=== PATIENT | male | born 1950 | race Two or more races ===

== ENCOUNTER 2024-09-12 08:23 | Outpatient (CLI) | payer OTHER ==
[2024-09-12 09:08] LABS: Hematocrit 33.7 % (41.0-53.0); Hemoglobin 11.5 g/dL (13.5-17.5); Mean Corpuscular Hemoglobin 32.9 pg (28.0-32.0); Mean Corpuscular Volume 96.6 fL (80.0-100.0)
[2024-09-12 09:20] LABS: Chloride 101 mmol/L (98-107); Potassium 4.1 mmol/L (3.5-5.1); Sodium 138 mmol/L (136-145)
[2024-09-12 09:21] LABS: Anion Gap 9 (5-15); Calcium 9.9 mg/dL (8.7-10.4); Carbon Dioxide 28 mmol/L (20-31)
[2024-09-12 09:26] LABS: BUN/Creatinine Ratio 21.1 (10.0-20.0); Blood Urea Nitrogen 16 mg/dL (9-23); Triglycerides 105 mg/dL (< 150)
[2024-09-12 09:27] LABS: Albumin 4.3 g/dL (3.2-4.8); Total Protein 6.9 g/dL (5.7-8.2)
[2024-09-12 09:29] LABS: Alkaline Phosphatase 657 U/L (46-116); Bilirubin, Total 3.2 mg/dL (0.2-1.0); Cholesterol 221 mg/dL (< 200); Glucose 133 mg/dL (74-106); HDL Cholesterol 93 mg/dL (40-59)
[2024-09-12 09:50] LABS: Alanine Aminotransferase 353 U/L (7-40)
[2024-09-12 09:58] LABS: Total Cells Counted 100.0 (100)
[2024-09-12 09:59] LABS: RBC Morphology Normal
== END 2024-09-12 17:00 | disposition home or self-care (01) ==
LOC: LAB 08:23
PROVIDERS: ATTEND Nurse Practitioner Acute Care
DX: E11.9 Type 2 diabetes mellitus without complications (principal); E55.9 Vitamin D deficiency, unspecified; I25.89 Other forms of chronic ischemic heart disease
CPT/HCPCS: 36415; 80053; 80061; 82043; 82306; 83036; 84439; 84443; 85007; 85027

== ENCOUNTER 2024-09-14 13:24 | Inpatient (IN) | payer MEDICARE, OTHER ==
[~2024-09-14] VITALS: Ht 180.3 cm; Wt 93.8 kg
--- NOTE | 2024-09-14 14:03 | ECG ---
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
[2024-09-14 14:53] LABS: Albumin 4.3 g/dL (3.2-4.8); Anion Gap 9 (5-15); BUN/Creatinine Ratio 24.7 (10.0-20.0); Blood Urea Nitrogen 22 mg/dL (9-23); Calcium 9.4 mg/dL (8.7-10.4); Carbon Dioxide 26 mmol/L (20-31); Chloride 103 mmol/L (98-107); Hematocrit 33.7 % (41.0-53.0); Hemoglobin 11.3 g/dL (13.5-17.5); Lipase 36 U/L (12-53); Mean Corpuscular Hemoglobin 32.7 pg (28.0-32.0); Mean Corpuscular Volume 97.5 fL (80.0-100.0); Potassium 4.2 mmol/L (3.5-5.1); Sodium 138 mmol/L (136-145); Total Protein 6.8 g/dL (5.7-8.2)
[2024-09-14 14:55] LABS: Alanine Aminotransferase 310 U/L (7-40); Alkaline Phosphatase 653 U/L (46-116); Bilirubin, Total 3.7 mg/dL (0.2-1.0); Glucose 123 mg/dL (74-106)
[2024-09-14 15:07] LABS: Total Cells Counted 100.0 (100)
--- NOTE | 2024-09-14 15:16 | DVHINCON2 ---
Date Seen: Sep 14, 2024 Referring Physician MD Logan Reason for Consultation Chest pain History of Present Illness This is a pleasant 73 y.o. male who presented to the emergency room with a chief complain of chest pain. Complains of intermittent substernal chest pain, provoked and unproved, pressure like, and associated with upper back pain, abdominal discomfort, and abnormal stools for approximately three months. He also reports dark tarry stool for approximately 2-3 days back in April,. He has a significant history for cardiovascular disease including a massive myocardial infarction with several v-fib events with successful defibrillation and twelve-lead electrocardiograms revealing ST elevations inferiorly and anterolaterally undergoing emergent cardiac catheterization and coronary angiogram, found with severe multivessel disease with total occlusion of the proximal RCA, proximal posterolateral and mid-posterolateral branches. He underwent a successful but very complex PTCA of the aforementioned vessels including [address] Luciano at [facility] in [place] on 09/14/2023. Given intermittent episodes of chest pain he underwent a cardiolite stress test with primary front office director in [place] on 05/09/2024. Records brought in indicate an abnormal nuclear stress test showing a large severe area of inferior reversible ischemia. No further invasive procedures have been completed. He has moved back to [place] this past week and is establishing care at this time. States he has been compliant with ASA, Brilinta, statin, BB, and ACEI. A 12 lead electrocardiogram revealed a sinus rhythm with nonspecific ST-T wave changes. Blood work pending at this time. Other medical history includes hypertension, dyslipidemia, mst-ksgyzyy-lhxwhgjuk diabetes mellitus, and obesity. Past Medical History Past medical history reviewed. No other significant than mentioned above. Past Surgical History PTCA x3 BERTO, 09/14/2023 Bilateral knees Family History Family history reviewed. Social History Denies the use of illicit drugs, alcohol, or tobacco use. Allergies: Coded Allergies: NO KNOWN ALLERGIES (Unverified , 01/03/14) Home Meds Home medications reviewed. Review of Systems Constitutional: No symptom reported Ears, Nose, & Throat: No symptom reported Eyes: No symptom reported Neurological: No symptoms reported Pulmonary/Respiratory: No symptom reported Cardiovascular: Chest pain Gastrointestinal: Abdominal pain. Black tarry stools Genitourinary: No symptom reported Musculoskeletal: Back pain Skin: No symptom reported Psychiatric: No symptom reported Endocrine: No symptom reported Hemotologic/Lymphatic: No symptom reported Vital Signs Vital Signs Date Time Temp Pulse Resp B/P (MAP) Pulse Ox O2 Delivery O2 Flow Rate FiO2 09/14/24 14:00 Room Air* 0 21 09/14/24 13:38 69 Physical Exam General Appearance: Cooperative. Jaundice. Icterus present. In no acute distress Head Exam: Normal inspection Neck Exam: Normal inspection. Non-tender. Normal alignment Pulmonary/Respiratory: Chest non-tender. Clear bilateral breath sounds Cardiovascular/Chest: Regular rate and rhythm. S1, S2. SR with non-specific ST-T wave changes. No murmurs. No JVD. Peripheral Pulses: 2+ Radial (R). 2+ Radial (L). 2+ Pedal (R). 2+ Pedal (L) Abdominal Exam: Normal bowel sounds. Soft. Ankle Exam: Negative ankle edema Lower extremities: Negative lower extremity edema Neuro/Mental Status: A&O x4. Coherent Thoughts/Psych: Normal thought pattern. Appropriate mood and affect. Good judgement and insight Appearance: In no acute distress Skin Exam: Normal inspection. Jaundice color. Warm. Dry Labs/Diagnostic Data Labs Test 09/14/24 13:56 Range/Units Assessment Unstable angina rule out progressive coronary artery disease CAD with severe RI, V-fib, & defibrillation s/p PTCA of the RCA x 3DES (on ASA/Brilinta, 09/14/2023) Ischemic nuclear cardiolite stress test (05/09/2024) Hypertension Dyslipidemia Rca-rmtnpnb-zzuaetkbc diabetes mellitus Recent history of black tarry stools Hepatic lesions rule out malignancy Anemia Obesity Plan/Recommendation (Dr. Walker) The patient with unstable angina and a positive cardiolite stress test as outpatient may qualify for a cardiac catheterization and coronary angiogram after malignancy and lower GI bleed has been ruled out. In the meantime, continue single-antiplatelet therapy, lipid-lowering agent, BB, ACEI, and Jardiance. We will obtain a transthoracic echocardiogram to evaluate cardiac function. Monitor ECG changes closely and notify. Continue chest pain protocol. Further orders per clinical course. Thank you for allowing us to p articipate in this patient's care. Please call if you have any questions or concerns. Critical care time: 45 min. This medical document was created using an electronic medical record system with voice recognition software and computerized dictation system. Although this document has been carefully reviewed, there might still be some phonetic and typographical errors. Occasional wrong-word or ``sound-alike substitutions may have occurred due to the inherent limitations of voice recognition software. These areas are purely typographical due to imperfections of the software programs and do not reflect any compromise in the patient's medical care. Please read the chart carefully and recognize, using context, where these substitutions have occurred. Plan discussed with: Patient, Other NYHA Physical activity limitations: NA Date of Service: Sep 14, 2024 Billing Provider: MATI CALVIN Cardiology Common Codes: [id number] CARE 30-74 MIN MATI CALVIN Sep 14, 2024 15:16
[2024-09-14] MEDS: IOHEXOL 300 MG/ML 100ML BOTTLE IJ ONE (15:24)
[2024-09-14 15:31] LABS: Hepatitis B Surface Antigen Negative (Negative)
[2024-09-14 15:53] LABS: Hepatitis C Antibody Negative (Negative)
--- NOTE | 2024-09-14 16:56 | DVH ---
Exam: CT CT AB PEL WITH IV CON ONLY History: abdominal pain COMPARISON: None Technique: Multidetector spiral CT of the abdomen and pelvis was performed from lung bases to pubic symphysis. Intravenous contrast was administered during this examination. Portal venous imaging was obtained. Axial, coronal and sagittal multiplanar reformats were performed by the technologist on a separate workstation. Radiation Dose : Abdomen/Pelvis: CTDIvol 19.19 mGy, DLP 999.82 mGy*cm. CONTRAST: Type of contrast: Omni 300 Contrast injected: 85 mL Findings: Lung Bases: No acute or significant lung base finding. Normal heart size. No pleural or pericardial effusion. Liver: Numerous hypoenhancing masses throughout the liver, largest measuring up to 32 mm. Gallbladder and biliary Tree: Gallbladder is surgically absent. Spleen: Unremarkable Pancreas: Ill-defined hypoenhancing mass in the body of the pancreas measuring up to 50 mm. Adrenal Glands: Unremarkable Kidneys: No hydronephrosis. Bladder: Unremarkable Bowel: The stomach is grossly normal in appearance. Small bowel and colon are normal in caliber and d istribution. Normal appendix is visualized in the right lower quadrant without findings of appendicit is. Ascites: Absent Lymphadenopathy: No mesenteric, retroperitoneal or periportal lymphadenopathy. Abdominal wall and Mesentery: Small fat containing umbilical hernia. Vasculature: The visualized abdominal aorta is normal in size and caliber. There is calcified atheros clerotic plaque involving the aorta and its branches. Abdominal and pelvic vessels demonstrate normal enhancement. Pelvic Organs: Unremarkable Musculoskeletal: No aggressive focal bony lesions, acute fractures or dislocation. IMPRESSION: 1. Ill-defined hypoenhancing mass in the body of the pancreas measuring up to 50 mm. Numerous hypoen hancing masses throughout the liver. Findings are concerning for primary pancreatic malignancy with metastatic disease to the liver. Recommend further evaluation with MRI of the abdomen with contrast. CT-guided biopsy of the most accessible liver lesion could be performed for tissue diagnosis. Radiation optimization: All CT scans at this facility use at least one of these dose optimization danny hniques: Automated exposure control mA and/or kV adjustment per patient size (includes targeted exams where dose is matched to clinical indication) or iterative reconstruction. HS:Y
--- NOTE | 2024-09-14 16:57 | DVH ---
CHEST RADIOGRAPH Indication: chest pain Technique: Single frontal view of the chest was obtained Comparison: None FINDINGS: Lines and Tubes: None Lungs: No focal consolidation. Pleura: No effusion. No pneumothorax. Cardiomediastinal contours: Unremarkable Bones: No acute osseous abnormality. IMPRESSION: No acute cardiopulmonary disease.
[2024-09-14] MEDS ORDERED: HYDROcodone-ACET 5/325MG TAB PO PRN (17:15)
[2024-09-14] MEDS ORDERED: MORPHINE SULFATE INJ 2 MG/ml SYRG IV PRN (17:15)
[2024-09-14] MEDS ORDERED: ONDANSETRON HCL 4 MG/2 ML VIAL IV PRN (17:15)
[2024-09-14] MEDS ORDERED: NITROGLYCERIN 0.4 MG SL TAB SL PRN (17:15)
--- NOTE | 2024-09-14 17:22 | DVHHP2 ---
History of Present Illness Reason for Visit: Chest pain History of Present Illness 73-year-old male presented to the ED with chief complaint of chest pain patient complains of pain is intermittent and substernal, pressure-like with associated upper back pain and abdominal discomfort. Patient states he had more normal stools for about3 months, he reported dark tarry stools. Patient has a significant history for cardiovascular disease. CT of abdomen/pelvis did show pancreatic and liver masses concerning for metastases. Oncology is consulted. Patient will be admitted telemetry for further treatment and management. Past Medical History PTCA x3, [place], CAD, Past Surgical History Bilateral knee surgery Family History Denies Smoke: No ALCOHOL: none Drugs: None Lives: Alone Review of Systems Constitutional: No: Fever, Chills, Sweats, Weakness, Malaise, Other Eyes: No: Pain, Vision change, Conjunctivae inflammation, Eyelid inflammation, Other, Redness ENT: No: Ear pain, Ear discharge, Nose pain, Nose discharge, Nose congestion, Mouth pain, Mouth swelling, Throat pain, Throat swelling, Other Respiratory: No: Cough, Dry, Shortness of breath, SOB with excertion, Wheezing, Hemoptysis, Pleuritic Pain, Sputum, Wheezing, Other Cardiovascular: Chest Pain; No: Palpitations, Orthopnea, Paroxysmal Noc. Dyspnea, Edema, Lt Headedness, Other Gastrointestinal: Abdominal Pain; No: Nausea, Vomiting, Diarrhea, Constipation, Melena, Hematochezia, Other Genitourinary: No Dysuria, No Frequency, No Incontinence, No Hematuria, No Retention, No Other Musculoskeletal: No: other, neck pain, shoulder pain, arm pain, back pain, hand pain, leg pain, foot pain Skin: No: Rash, Lesions, Jaundice, Bruising, Other Neurological: No: Weakness, Numbness, Incoordination, Change in speech, Confusion, Seizures, Other Allergies: Coded Allergies: NO KNOWN ALLERGIES (Unverified , 01/03/14) Exam Vital Signs Vital Signs Date Time Temp Pulse Resp B/P (MAP) Pulse Ox O2 Delivery O2 Flow Rate FiO2 09/14/24 16:51 63 09/14/24 16:00 98.3 19 129/62 (84) 99 98.3 09/14/24 14:00 Room Air* 0 21 General Appearance: Alert, Oriented X3, Cooperative, No acute distress HEENT: Atraumatic, PERRLA, EOMI, Mucous membr. moist/pink Respiratory: Clear to auscultation, Normal air movement Cardiovascular: Regular rate, Normal S1, Normal S2, No murmurs Abdominal: Normal bowel sounds, Soft, No tenderness, No hepatospenomegaly, No masses Extremities: No clubbing, No cyanosis, No edema, Normal pulses, No tenderness/swelling Skin: No rashes, No breakdown, No significant lesion Neuro: Normal gait, Normal speech, Strength at 5/5 X4 ext, Normal tone, Sensation intact, Cranial nerves 3-12 NL, Reflexes 2+ Psych/Mental Status: Mental status NL, Mood NL Labs/Xrays Reviewed with patient Labs Test 09/14/24 15:02 09/14/24 13:56 Range/Units Troponin I High Sensitivity 9 </=54 ng/L White Blood Count 9.4 4.4-10.8 10^3/uL Red Blood Count 3.46 L 4.5-5.90 10^6/uL Hemoglobin 11.3 L 13.5-17.5 g/dL Hematocrit 33.7 L 41.0-53.0 % Mean Corpuscular Volume 97.5 80.0-100.0 fL Mean Corpuscular Hemoglobin 32.7 H 28.0-32.0 pg Mean Corpuscular Hemoglobin Concent 33.6 32.0-36.0 g/dL Red Cell Distribution Width 15.2 H 11.8-14.3 % Platelet Count 276 140-450 10^3/uL Mean Platelet Volume 8.2 6.9-10.8 fL Neutrophils (%) (Auto) 37.0-80.0 % Lymphocytes (%) (Auto) 10.0-50.0 % Monocytes (%) (Auto) 0.0-12.0 % Basophils (%) (Auto) 0.0-2.0 % Neutrophils # (Auto) 1.6-8.6 10 ^3/uL Lymphocytes # (Auto) 0.4-5.4 10 ^3/uL Monocytes # (Auto) 0-1.3 10 ^3/uL Differential Total Cells Counted 100.0 100 Neutrophils % (Manual) 66 37.0-80.0 Band Neutrophils % (Manual) 0 Lymphocytes % (Manual) 25 10.0-50.0 Monocytes % (Manual) 4 0-12 Eosinophils % (Manual) 4 0-7 Basophils % (Manual) 0 0.0-2.0 Metamyelocytes % (manual) 1 Myelocytes % (Manual) 0 Promyelocytes % (Manual) 0 Blast Cells % (Manual) 0 Reactive Lymphocytes 0 Platelet Estimate Adequate Sodium Level 138 136-145 mmol/L Potassium Level 4.2 3.5-5.1 mmol/L Chloride Level 103 98-107 mmol/L Carbon Dioxide Level 26 20-31 mmol/L Anion Gap 9 5-15 Blood Urea Nitrogen 22 9-23 mg/dL Creatinine 0.89 0.700-1.30 mg/dL Glomerular Filtration Rate Calc 92 >90 mL/min BUN/Creatinine Ratio 24.7 H 10.0-20.0 Serum Glucose 123 H 74-106 mg/dL Lactic Acid Level 1.4 0.4-2.0 mmol/L Calcium Level 9.4 8.7-10.4 mg/dL Total Bilirubin 3.7 H 0.2-1.0 mg/dL Aspartate Amino Transferase (AST) 233 H 13-40 U/L Alanine Aminotransferase (ALT) 310 H 7-40 U/L Alkaline Phosphatase 653 H 46-116 U/L Total Protein 6.8 5.7-8.2 g/dL Albumin 4.3 3.2-4.8 g/dL Lipase 36 12-53 U/L Carcinoembryonic Antigen 100.00 <=5.0 ng/mL Hepatitis A IgM Antibody Negative Hepatitis B Surface Antigen Negative Negative Hepatitis B Core IgM Antibody Negative Negative Hepatitis C Antibody Negative Negative SEPSIS Sepsis Screen Date sepsis recognized/suspect: Sep 14, 2024 Time Sepsis recognized/suspect: 1329 Recent Procedure: No On Antibiotic Therapy: No Respiratory Rate >20: No Heart Rate >90: No Temp<36 C (96.8 F) or >38.3 C: No SBP <90 or MAP <65 mmHG: No New Acute Mental Status Change: No Is the patient on CPAP, BIPAP,: No Physician Orders Chest Portable (09/14/24 13:46) Ct Ab Pel With Iv Con Only (09/14/24 13:46) Urinalysis (09/14/24 13:46) Troponin-I Hs (09/14/24 16:46) Electrocardigram (09/14/24 14:46) Electrocardigram (09/14/24 16:46) Afp Serum Tumor Marker (09/14/24 14:06) Stool Occult Blood (09/14/24 15:33) Vital Signs Date Time Temp Pulse Resp B/P (MAP) Pulse Ox O2 Delivery O2 Flow Rate FiO2 09/14/24 16:51 63 09/14/24 16:00 98.3 61 19 129/62 (84) 99 98.3 09/14/24 14:25 62 09/14/24 14:00 98.8 67 18 107/50 (69) 95 98.8 09/14/24 14:00 Room Air* 0 21 09/14/24 13:38 69 09/14/24 13:29 97.7 83 16 128/73 (91) 96 97.7 Laboratory Tests Test 09/14/24 13:56 Lactic Acid Level 1.4 mmol/L (0.4-2.0) White Blood Count 9.4 10^3/uL (4.4-10.8) Assessment/Plan Assessment/Plan Chest pain ACS protocol Cardiology consulted and seen Echo ordered Resume home medication Cardiac diet Concern for Liver/pancreatic mass Ultrasound and as outpatient with concerns for liver lesions- CT abdomen/pelvis showing liver/pancreatic mass concerning for metastases Elevated liver enzymes Consult oncology GI/VTE prophylaxis- no history of GI bleed Plan discussed with: Patient Date of Service: Sep 14, 2024 Billing Provider: PADMINI GARZA Common Visit Codes: [id number] INP/OBS CARE (HIGH) PADMINI GARZA Sep 14, 2024 17:22
[2024-09-14] MEDS ORDERED: ATOR40TA52 (17:44)
[2024-09-14] MEDS ORDERED: LISI-275 PO (17:44)
[2024-09-14] MEDS ORDERED: METO25TA93 PO (17:44)
[2024-09-14] MEDS ORDERED: EMPA1TAB PO (17:44)
[2024-09-14] MEDS ORDERED: TICA90TA PO (17:44)
--- NOTE | 2024-09-14 18:13 | ECG ---
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
--- NOTE | 2024-09-14 18:14 | ECG ---
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
[2024-09-14] MEDS ORDERED: TICAGRELOR 90 MG TAB PO SCH (22:00)
[2024-09-14] MEDS ORDERED: ATORVASTATIN 20 MG TAB PO SCH (22:00)
[2024-09-14 22:53] VITALS: BP 139/77; PULSE 94; RESP 18; TEMP 98.1; O2SAT 95
[2024-09-14] MEDS ORDERED: ASPI-543 PO (23:23)
[2024-09-14] MEDS ORDERED: METF-370 PO (23:24)
[2024-09-14] MEDS: MELATONIN 5 MG TAB PO SCH (23:32)
[2024-09-15] VITALS (8 sets, daily range): BP systolic 104–129; BP diastolic 60–72; PULSE 57–82; RESP 16–20; TEMP 97.9–98.3; O2SAT 93–97
[2024-09-15] MEDS: MORPHINE SULFATE INJ 2 MG/ml SYRG IV PRN (01:25)
--- NOTE | 2024-09-15 01:43 | DVHSR ---
APPROVED REPORT EXAM: Two-dimensional and M-mode echocardiogram with Doppler and color Doppler. Blood Pressure: 129/62 mmHg INDICATION Chest Pain DIMENSIONS LVDd4.7 (3.8-5.7cm)LA (2D)5.6 (1.9-4.0cm)Aortic Root3.8 (2.0-3.7cm) LVDs3.9 (2.5-4.0cm)LA (MM) (1.9-4.0cm)Aortic Cusp Exc2.0 (1.5-2.0cm) EF (%) 37.3 (55-70%)Rt. Atrium4.3 (1.9-4.0cm)Asc. Aorta cm IVSd1.0 (0.7-1.1cm)RV (D)4.2 (1.8-2.4cm) PWd0.9 (0.7-1.1cm) Mitral Valve MitralMitral Stenosis E wave0.55m/sMV Mean GR.mmHg A wave0.95m/sMV Peak GR.52mmHg E/A ratio0.62D MVAcm2 DECEL [id number] 1/2 Timems Aortic Valve Aortic ValveAortic Stenosis V11.15m/Cony Mean GR.4mmHg V21.52m/Cony Peak GR.9mmHg Pulmonic Valve V20.84m/s Tricuspid Valve TR Velocity2.56m/s [id number] Conclusion MILD LVH AND MILD LV DIASTOLIC DYSFUNCTION LV EF IS 50% AND IS LOW NORMAL MODERATELY DILATED RV AND RA RVSP IS 30 MM OF HG AND IS NORMAL MODERATELY DILATED LA GROSSLY NORMAL VALVES NO EFFUSION
[2024-09-15 08:07] LABS: Hematocrit 34.0 % (41.0-53.0); Hemoglobin 11.7 g/dL (13.5-17.5); Mean Corpuscular Hemoglobin 33.0 pg (28.0-32.0); Mean Corpuscular Volume 96.2 fL (80.0-100.0)
[2024-09-15 08:11] LABS: Anion Gap 10 (5-15); BUN/Creatinine Ratio 24.4 (10.0-20.0); Blood Urea Nitrogen 20 mg/dL (9-23); Calcium 9.9 mg/dL (8.7-10.4); Carbon Dioxide 25 mmol/L (20-31); Chloride 102 mmol/L (98-107); Potassium 4.2 mmol/L (3.5-5.1); Sodium 137 mmol/L (136-145); Total Protein 7.0 g/dL (5.7-8.2)
[2024-09-15 08:12] LABS: Albumin 4.2 g/dL (3.2-4.8)
[2024-09-15 08:14] LABS: Alanine Aminotransferase 331 U/L (7-40); Alkaline Phosphatase 683 U/L (46-116); Bilirubin, Total 3.7 mg/dL (0.2-1.0); Glucose 146 mg/dL (74-106)
[2024-09-15 08:26] LABS: Total Cells Counted 100.0 (100)
[2024-09-15] MEDS: EMPAGLIFLOZIN 10 MG TAB PO SCH (09:40)
[2024-09-15] MEDS: METOPROLOL SUCCINATE XL 50 MG TAB PO SCH (09:41)
[2024-09-15] MEDS: LISINOPRIL 5 MG TAB PO SCH (09:41)
--- NOTE | 2024-09-15 11:29 | DVHPN2 ---
Consult Progress Note Date Seen: Sep 15, 2024 Subjective Review of Systems: CVS:Normal, RESPIRATORY:Normal, NEURO:Normal Other Systems: Denies any cardiac symptoms. C/o mid-back pain Objective vital signs Vital Sign Date Time Temp Pulse Resp B/P (MAP) Pulse Ox O2 Delivery O2 Flow Rate FiO2 09/15/24 09:41 79 125/67 09/15/24 08:32 98.2 16 94 98.2 09/14/24 22:53 Room Air* 0 21 Total Intake and Output 09/14/24 09/14/24 09/15/24 15:00 23:00 07:00 Intake Total 300 ml Balance 300 ml medications Current Medications Medications Dose Ordered Sig/Analy Route Start Time Stop Time Status Last Admin Dose Admin Acetaminophen/ Hydrocodone Bitart 1 tab Q4HP PRN PO 09/14/24 17:15 Ondansetron HCl 4 mg Q4HP PRN IV 09/14/24 17:15 Morphine Sulfate 2 mg Q4HPRN PRN IV 09/14/24 17:15 09/15/24 01:25 2 MG Nitroglycerin 0.4 mg Q5MINP PRN SL 09/14/24 17:15 Morphine Sulfate 2 mg Q30M PRN IV 09/14/24 17:15 Empaglifozin 10 mg DAILY PO 09/15/24 10:00 09/15/24 09:40 10 MG Lisinopril 5 mg DAILY PO 09/15/24 10:00 09/15/24 09:41 5 MG Atorvastatin Calcium 40 mg HS PO 09/14/24 22:00 Hold Metoprolol Succinate 25 mg DAILY PO 09/15/24 10:00 09/15/24 09:41 25 MG Aspirin 81 mg DAILY PO 09/15/24 10:00 09/15/24 09:40 81 MG Melatonin 10 mg HS PO 09/14/24 22:00 09/14/24 23:32 10 MG Examination: LUNGS:Normal, CVS:Normal, NEURO:Normal laboratory and microbiology Laboratory Tests 09/15/24 05:56 Test 09/15/24 05:56 Range/Units Serum Glucose 146 H 74-106 mg/dL Problem List/Assessment/Plan Problem List/Assessment/Plan Pancreatic cancer with metastasis to the liver Unstable angina rule out progressive coronary artery disease CAD with severe [place], V-fib, & defibrillation s/p PTCA of the RCA x 3DES (on ASA/Brilinta, 09/14/2023) Ischemic nuclear cardiolite stress test (05/09/2024) Hypertension Dyslipidemia Aoa-rywvvol-wiqrvxfnj diabetes mellitus Anemia, ?GI bleed Obesity Plan/Recommendation (Dr. Walker) The patient with unstable angina and a positive cardiolite stress test is not a candidate for any invasive cardiac procedures given latest findings of pancreatic CA with metastatasis to the liver. A transthoracic echocardiogram revealed an LVEF of 50%. We recommend single-antiplatelet therapy with ASA only, lipid-lowering agent, BB, ACEI, and Jardiance. ASA can be held temporarily if in need of invasive diagnostic procedures such as biopsies. Kindly call if in need to re-consult. Thank you for allowing us to participate in this patient's care. This medical document was created using an electronic medical record system with voice recognition software and computerized dictation system. Although this document has been carefully reviewed, there might still be some phonetic and typographical errors. Occasional wrong-word or ``sound-alike substitutions may have occurred due to the inherent limitations of voice recognition software. These areas are purely typographical due to imperfections of the software programs and do not reflect any compromise in the patient's medical care. Please read the chart carefully and recognize, using context, where these substitutions have occurred. Plan discussed with: Patient, Spouse, Son, Other Date of Service: Sep 15, 2024 Billing Provider: MATI CALVIN Cardiology Common Codes: [id number] HOSP CARE(High MATI CALVIN Sep 15, 2024 11:29
--- NOTE | 2024-09-15 17:36 | DVHPNRES ---
Progress Note Date Seen: Sep 15, 2024 Resident Creating Document: DANIELLE KNIGHT RESIDENT Medical Necessity Reason Pt with a Central, PICC or Fol: No Subjective Review of Systems Patient 73-year-old male with prior history of type 2 diabetes mellitus and CAD with OK requiring PTCA x 3 BERTO in August 2023, who presented to the ED with chief complaint of chest pain. He was previously living in [place], and refers intermittent episodes of chest pain and shortness of breath since April of 2024. He underwent a nuclear stress test in April of 2024, which was positive for a large area of inferior reversible ischemia, currently on ASA, Brilinta, statin, BB, and ACEi. However, due to insurance concerns, further invasive testing could not be performed at the time. He returned to [place] for further work up. When establishing care with a primary, laboratory results showed elevated total bilirubins and LFTs, which prompted a Liver ultrasound study showing numerous masses, patient was subsequently sent to ED for further evaluation. 12 Lead EKG revealed sinus rhythm with non specific ST-T wave changes. Initial labs show Hb 11.3, HCT 33.7, PLT 276, troponins negative, total bilirubin 3.7, AST 246, ALT 331, and ALP 683. CT Abdomen/pelvis showed ill-defined hypoenhancing mass in the body of the pancreas measuring up to 50 mm and multiple liver lesions. Patient was admitted for work up. Patient seen at bedside. Patient is oriented in person, place and time. States that he first started noticing changes in his stools in April, also during this time his PCP also had to increase his metformin due to increasingly difficult to control diabetes. States he has lost weight, but that it was intentional to due to previous OK and diabetes. However, he states that for last few months he's been having progressively worsening abdominal pain. Patient states that pain starts toward his back and comes around to the front and has increased in intensity. Additionally, states that his sons have mentioned that he at times looks yellow. Currently denies nausea, vomiting, changes in appetite, pale stools, changes in urine, shortness of breath, generalized pruritus, and other symptoms. Follow up tests show AFP negative and CEA 100, CA 19-9 has been ordered. Patient was seen by cardiology, who state that due to the findings of metastatic pancreatic cancer, he is not a candidate for invasive cardiac procedures. At this time, they recommend management with ASA and his home medications. He states he is aware of the CT findings, we counseled him over the potential implications. His family was informed as well, the current plan is biopsy one of the liver lesions with aims of getting a histopathological confirmation and for the patient to set up care and following work up with oncology outpatient. Review of systems: Constitutional: Refers weight loss, denies fever and chills HEENT: Denies changes in vision and hearing Respiratory: Denies shortness of breath and cough Cardiovascular: Refers chest pain, denies palpitations GI: Refers abdominal pain, denies abdominal distention, diarrhea : Denies dysuria and urinary frequency MSK: Refers back pain that radiates to abdomen Skin: Denies rash Neuroglogical: Denies dizziness, headache, vision or hearing problems Objective vital signs Vital Sign Date Time Temp Pulse Resp B/P (MAP) Pulse Ox O2 Delivery O2 Flow Rate FiO2 09/15/24 17:14 97.9 68 20 110/72 (85) 97 97.9 09/15/24 08:00 Room Air* 0 21 Total Intake and Output 09/14/24 09/14/24 09/15/24 15:00 23:00 07:00 Intake Total 300 ml Balance 300 ml medications Current Medications Medications Dose Ordered Sig/Analy Route Start Time Stop Time Status Last Admin Dose Admin Acetaminophen/ Hydrocodone Bitart 1 tab Q4HP PRN PO 09/14/24 17:15 Ondansetron HCl 4 mg Q4HP PRN IV 09/14/24 17:15 Morphine Sulfate 2 mg Q4HPRN PRN IV 09/14/24 17:15 09/15/24 01:25 2 MG Nitroglycerin 0.4 mg Q5MINP PRN SL 09/14/24 17:15 Morphine Sulfate 2 mg Q30M PRN IV 09/14/24 17:15 Empaglifozin 10 mg DAILY PO 09/15/24 10:00 09/15/24 09:40 10 MG Lisinopril 5 mg DAILY PO 09/15/24 10:00 09/15/24 09:41 5 MG Atorvastatin Calcium 40 mg HS PO 09/14/24 22:00 Hold Metoprolol Succinate 25 mg DAILY PO 09/15/24 10:00 09/15/24 09:41 25 MG Aspirin 81 mg DAILY PO 09/15/24 10:00 09/15/24 09:40 81 MG Melatonin 10 mg HS PO 09/14/24 22:00 09/14/24 23:32 10 MG Examination General: Patient is oriented in person, place, and time. Follows commands. HEENT: Normocephalic, atraumatic, moist mucouse membrane Respiratory: Clear lungs bilaterally, vesicular murmurs present in almost all lung escamilla, no associated crackles or wheezes Cardiovascular: Normal rate, Normal S1 and S2 Abdomen: Nondistended, soft, no pain to palpation, no palpable masses Extremities: peripheral pulses present and strong, no apparent deformities Skin: No rashes or pruritus Neurological: intact cranial nerves with no focal neurologic deficits laboratory and microbiology Laboratory Tests 09/15/24 05:56 Test 09/15/24 05:56 Range/Units Serum Glucose 146 H 74-106 mg/dL Problem List/Assessment/Plan Problem List/Assessment/Plan Assessment and Plan: Likely Pancreatic Cancer with liver mets -CT abdomen: ill-defined hypoenhancing mass in the body of the pancreas measuring up to 50 mm and multiple liver lesions -Biopsy metastatic lesion for histopathological diagnosis -Outpatient staging work up with out patient oncology History of CAD with [place] s/p PTCA of the RCA x 3 BERTO Unstable angina, rule out progressive CAD -Positive cardiolite stress test -Cardiology: Patient is not a candidate for invasive cardiac procedures, recommend management with ASA, lipid lowering agent, BB, ACEi,, and Jardiance Anemia -Monitor H + H Type 2 Diabetes -Continue home medications Hypertension -Continue home medications Dyslipidemia -Continue home medications DVT prophylaxis: Patient is ambulating Case discussed with Dr. Alcazar. Goals of care discussed with the patient and his family. He states he understands and agrees. FULL CODE. Plan discussed with: Patient, Spouse My Orders My Orders Orders - DANIELLE KNIGHT RESIDENT Procedure Category Date Status Time Carbohydrate Antigen LAB 09/15/24 In Process 19-9 Complete Blood Count LAB 09/16/24 Verified 04:00 Basic Metabolic Panel LAB 09/16/24 Verified 04:00 Date of Service: Sep 15, 2024 Billing Provider: SIMRAN ALCAZAR MD Common Visit Codes: [id number] INP/OBS CARE(HIGH) DANIELLE KINGHT RESIDENT Sep 15, 2024 17:36 SIMRAN ALCAZAR MD Sep 16, 2024 16:16
[2024-09-15 23:27] LABS: Urine Protein, UAD Negative (Negative)
[2024-09-16] VITALS (8 sets, daily range): BP systolic 109–128; BP diastolic 56–71; PULSE 51–74; RESP 17–19; TEMP 97.7–98.5; O2SAT 94–99
[2024-09-16 07:26] LABS: Hematocrit 31.5 % (41.0-53.0); Hemoglobin 10.9 g/dL (13.5-17.5); Mean Corpuscular Hemoglobin 33.4 pg (28.0-32.0); Mean Corpuscular Volume 96.9 fL (80.0-100.0)
[2024-09-16 07:34] LABS: Chloride 105 mmol/L (98-107); Potassium 4.0 mmol/L (3.5-5.1); Sodium 139 mmol/L (136-145)
[2024-09-16 07:35] LABS: Anion Gap 9 (5-15); Carbon Dioxide 25 mmol/L (20-31)
[2024-09-16 07:36] LABS: Calcium 9.6 mg/dL (8.7-10.4)
[2024-09-16 07:40] LABS: BUN/Creatinine Ratio 28.4 (10.0-20.0); Blood Urea Nitrogen 19 mg/dL (9-23)
[2024-09-16 07:44] LABS: Glucose 114 mg/dL (74-106)
[2024-09-16 08:22] LABS: Total Cells Counted 100.0 (100)
[2024-09-16] MEDS: POLYETHYLENE GLYCOL 17 GM PWDR PO PRN (15:01)
--- NOTE | 2024-09-16 18:43 | DVHPNRES ---
Progress Note Date Seen: Sep 16, 2024 Resident Creating Document: PRIMITIVO RAMIREZ RESIDENT Medical Necessity Reason Pt with a Central, PICC or Fol: No Subjective Review of Systems Patient 73-year-old male with prior history of type 2 diabetes mellitus and CAD with [place] requiring PTCA x 3 BERTO in August 2023, who presented to the ED with chief complaint of chest pain. He was previously living in [place], and refers intermittent episodes of chest pain and shortness of breath since April of 2024. He underwent a nuclear stress test in April of 2024, which was positive for a large area of inferior reversible ischemia, currently on ASA, Brilinta, statin, BB, and ACEi. However, due to insurance concerns, further invasive testing could not be performed at the time. He returned to [place] for further work up. When establishing care with a primary, laboratory results showed elevated total bilirubins and LFTs, which prompted a Liver ultrasound study showing numerous masses, patient was subsequently sent to ED for further evaluation. 12 Lead EKG revealed sinus rhythm with non specific ST-T wave changes. Initial labs show Hb 11.3, HCT 33.7, PLT 276, troponins negative, total bilirubin 3.7, AST 246, ALT 331, and ALP 683. CT Abdomen/pelvis showed ill-defined hypoenhancing mass in the body of the pancreas measuring up to 50 mm and multiple liver lesions. Patient was admitted for work up. Patient seen at bedside. Patient alert x3, comfortable, he does not complain of any abdominal pain, nausea, vomiting, diarrhea, constipation. Consulted IR and awaiting biopsy of liver lesions. Pending CA 19-9 result. Patient was seen by cardiology, who state that due to the findings of metastatic pancreatic cancer, he is not a candidate for invasive cardiac procedures. At this time, they recommend management with ASA and his home medications. Objective vital signs Vital Sign Date Time Temp Pulse Resp B/P (MAP) Pulse Ox O2 Delivery O2 Flow Rate FiO2 09/16/24 16:50 98.0 74 19 110/56 (74) 96 98.0 09/16/24 08:00 Room Air* 0 21 Total Intake and Output 09/15/24 09/15/24 09/16/24 15:00 23:00 07:00 Intake Total 150 ml 480 ml 400 ml Balance 150 ml 480 ml 400 ml medications Current Medications Medications Dose Ordered Sig/Analy Route Start Time Stop Time Status Last Admin Dose Admin Acetaminophen/ Hydrocodone Bitart 1 tab Q4HP PRN PO 09/14/24 17:15 Ondansetron HCl 4 mg Q4HP PRN IV 09/14/24 17:15 Morphine Sulfate 2 mg Q4HPRN PRN IV 09/14/24 17:15 09/16/24 03:50 2 MG Empaglifozin 10 mg DAILY PO 09/15/24 10:00 09/16/24 08:32 10 MG Lisinopril 5 mg DAILY PO 09/15/24 10:00 09/16/24 08:32 5 MG Atorvastatin Calcium 40 mg HS PO 09/14/24 22:00 Hold Metoprolol Succinate 25 mg DAILY PO 09/15/24 10:00 09/16/24 08:32 25 MG Melatonin 10 mg HS PO 09/14/24 22:00 09/15/24 22:08 10 MG Polyethylene Glycol 17 gm DAILYPRN PRN PO 09/16/24 14:30 09/16/24 15:01 17 GM Examination General: Patient alert and oriented in person, place and time. Patient following commands. HEENT: Normocephalic, atraumatic, moist mucous membranes Respiratory/pulmonary: Clear lungs bilaterally, vesicular murmurs present in almost all lung escamilla, no associated crackles or wheezes. Cardiovascular: Normal heart sounds S1 and S2 with no associated murmurs Abdomen: Abdomen nondistended, there is no pain to palpation in any of the abdominal quadrants, no palpable masses. Extremities: There is no peripheral edema present at the lower extremities. Peripheral Pulses: 3+ Radial (R). 3+ Radial (L). 3+ Dorsalis pedis (R). 3+ Dorsalis pedis(L) Skin: No rashes or pruritus, there is no sacral edema present at this time. Neurological: Intact cranial nerves with no focal neurologic deficits laboratory and microbiology Laboratory Tests 09/16/24 06:28 Test 09/16/24 06:28 Range/Units Serum Glucose 114 H 74-106 mg/dL Problem List/Assessment/Plan Problem List/Assessment/Plan Likely Pancreatic Cancer with liver mets - CT abdomen: ill-defined hypoenhancing mass in the body of the pancreas measuring up to 50 mm and multiple liver lesions - Biopsy metastatic lesion for histopathological diagnosis - Outpatient staging work up with out patient oncology - Awaiting biopsy of liver mass History of CAD with [place] s/p PTCA of the RCA x 3 BERTO Unstable angina, rule out progressive CAD - Positive cardiolite stress test - Cardiology: Patient is not a candidate for invasive cardiac procedures, recommend management with ASA, lipid lowering agent, BB, ACEi,, and Jardiance Anemia -Monitor H + H Type 2 Diabetes -Continue home medications Hypertension -Continue home medications Dyslipidemia -Continue home medications DVT prophylaxis: Patient is ambulating Case discussed with Dr. Alcazar. Goals of care discussed with the patient and his family. He states he understands and agrees. FULL CODE. Plan discussed with: Patient Date of Service: Sep 16, 2024 Billing Provider: SIMRAN ALCAZAR MD Common Visit Codes: [id number] INP/OBS CARE(HIGH) PRIMITIVO RAMIREZ RESIDENT Sep 16, 2024 18:43 SIMRAN ALCAZAR MD Sep 18, 2024 13:48
[2024-09-17 01:00] VITALS: BP 118/69; PULSE 60; RESP 18; TEMP 98.1; O2SAT 97
[2024-09-17 05:00] VITALS: BP 140/81; PULSE 63; RESP 17; TEMP 97.7; O2SAT 95
[2024-09-17] MEDS: ACETAMINOPHEN 325 MG TAB PO ONE (05:46)
[2024-09-17 08:00] VITALS: PULSE 66
[2024-09-17 08:07] LABS: Anion Gap 11 (5-15); Carbon Dioxide 25 mmol/L (20-31); Chloride 101 mmol/L (98-107); Potassium 4.0 mmol/L (3.5-5.1); Sodium 137 mmol/L (136-145)
[2024-09-17 08:08] LABS: Calcium 9.8 mg/dL (8.7-10.4)
[2024-09-17 08:13] LABS: BUN/Creatinine Ratio 21.8 (10.0-20.0); Blood Urea Nitrogen 17 mg/dL (9-23)
[2024-09-17 08:14] LABS: Glucose 123 mg/dL (74-106)
[2024-09-17 08:30] LABS: INR 1.18 (0.9-1.15); Partial Thromboplastin Time 25.9 SEC (24.5-34.5); Prothrombin Time 12.3 sec (9.3-11.8)
[2024-09-17 08:44] LABS: Hematocrit 33.9 % (41.0-53.0); Hemoglobin 11.6 g/dL (13.5-17.5); Mean Corpuscular Hemoglobin 33.2 pg (28.0-32.0); Mean Corpuscular Volume 97.4 fL (80.0-100.0)
[2024-09-17 09:30] VITALS: BP 118/71; PULSE 65; RESP 16; TEMP 98; O2SAT 97
[2024-09-17] MEDS: GELATIN 1 SPONGE SIZE 50 TOP ONE (09:57)
[2024-09-17] MEDS: LIDOCAINE 2%HCL (LOCAL ANESTH.) INJ 10ml MDV ONE (10:00)
[2024-09-17 10:14] LABS: Total Cells Counted 100.0 (100)
--- NOTE | 2024-09-17 11:47 | DVH ---
US US GUIDANCE FOR NEEDLE PLACEME, HISTORY: LIVER MASS BX PROCEDURE: Informed consent was obtained. The patient was placed supine on the CT scanner, and limite d US was performed of the liver. The skin over the area of interest was prepped with chlorhexidine w hich was allowed to dry and draped in the usual sterile fashion. Time out was performed. 1% local lid ocaine was administered. With intermittent US guidance, Temno 17 gauge outer coaxial guiding needle w as advanced into the right lower liver mass. Multiple biopsies were obtained using Temno 18 gauge inn er core biopsy needle. The specimens were placed in formalin and sent to pathology for analysis. The needle was withdrawn , and the visceral tract embolized with gelfoam pledgets. 8 minutes of pressure was held for hemostasis. Post procedural images were obtained. No immediate complication was identifi ed. FINDINGS: Right inferior lobe of liver mass seen on US correlates to CT scan. Intra-procedural images demonstrate biopsy needle within the margin of targeted lesion. Post procedural images do not demons trate any significant hemorrhage. IMPRESSION: US guided right lower liver mass biopsy. Pathology results pending. Bed rest for 3 hours.
--- NOTE | 2024-09-17 12:47 | DVH ---
PROCEDURE: CT GUIDED BIOPSY OF HISTORY: LIVER BX HISTORY: LIVER MASS BX PROCEDURE: Informed consent was obtained. The patient was placed supine on the CT scanner, and limite d US was performed of the liver. The skin over the area of interest was prepped with chlorhexidine wh ich was allowed to dry and draped in the usual sterile fashion. Time out was performed. 1% local lido jhony was administered. With intermittent US guidance, Temno 17 gauge outer coaxial guiding needle wa s advanced into the right lower liver mass. Multiple biopsies were obtained using Temno 18 gauge inne r core biopsy needle. The specimens were placed in formalin and sent to pathology for analysis. The n eedle was withdrawn , and the visceral tract embolized with gelfoam pledgets. 8 minutes of pressure w as held for hemostasis. Post procedural images were obtained. No immediate complication was identifie d. FINDINGS: Right inferior lobe of liver mass seen on US correlates to CT scan. Intra-procedural images demonstrate biopsy needle within the margin of targeted lesion. Post procedural images do not demons trate any significant hemorrhage. IMPRESSION: US /CT guided right lower liver mass biopsy. Pathology results pending. Bed rest for 3 hours.
[2024-09-17 13:00] VITALS: BP 137/83; PULSE 70; RESP 18; TEMP 98.5; O2SAT 98
[2024-09-17] MEDS ORDERED: HYDR-4902 PO (13:58)
[2024-09-17 15:42] VITALS: BP 132/62; PULSE 66
--- NOTE | 2024-09-17 18:25 | DVHDSRES ---
Discharge Summary Date of Admission Resident Creating Document: DANIELLE KNIGHT RESIDENT Sep 14, 2024 at 17:13 Date of Discharge: Sep 17, 2024 Labs/Diagnostic Data: Laboratory Results Test 09/17/24 06:46 09/16/24 16:00 09/15/24 10:20 09/15/24 05:56 White Blood Count 10.9 10^3/uL (4.4-10.8) Red Blood Count 3.48 10^6/uL (4.5-5.90) Hemoglobin 11.6 g/dL (13.5-17.5) Hematocrit 33.9 % (41.0-53.0) Mean Corpuscular Volume 97.4 fL (80.0-100.0) Mean Corpuscular Hemoglobin 33.2 pg (28.0-32.0) Mean Corpuscular Hemoglobin Concent 34.1 g/dL (32.0-36.0) Red Cell Distribution Width 15.4 % (11.8-14.3) Platelet Count 267 10^3/uL (140-450) Mean Platelet Volume 8.6 fL (6.9-10.8) Neutrophils (%) (Auto) % (37.0-80.0) Lymphocytes (%) (Auto) % (10.0-50.0) Monocytes (%) (Auto) % (0.0-12.0) Basophils (%) (Auto) % (0.0-2.0) Neutrophils # (Auto) 10 ^3/uL (1.6-8.6) Lymphocytes # (Auto) 10 ^3/uL (0.4-5.4) Monocytes # (Auto) 10 ^3/uL (0-1.3) Differential Total Cells Counted 100.0 (100) Neutrophils % (Manual) 84 (37.0-80.0) Band Neutrophils % (Manual) 0 Lymphocytes % (Manual) 10 (10.0-50.0) Monocytes % (Manual) 6 (0-12) Eosinophils % (Manual) 0 (0-7) Basophils % (Manual) 0 (0.0-2.0) Metamyelocytes % (manual) 0 Myelocytes % (Manual) 0 Promyelocytes % (Manual) 0 Blast Cells % (Manual) 0 Reactive Lymphocytes 0 Platelet Estimate Adequate Prothrombin Time 12.3 sec (9.3-11.8) Prothrombin Time INR 1.18 (0.9-1.15) Activated Partial Thromboplast Time 25.9 SEC (24.5-34.5) Sodium Level 137 mmol/L (136-145) Potassium Level 4.0 mmol/L (3.5-5.1) Chloride Level 101 mmol/L (98-107) Carbon Dioxide Level 25 mmol/L (20-31) Anion Gap 11 (5-15) Blood Urea Nitrogen 17 mg/dL (9-23) Creatinine 0.78 mg/dL (0.700-1.30) Glomerular Filtration Rate Calc 95 mL/min (>90) BUN/Creatinine Ratio 21.8 (10.0-20.0) Serum Glucose 123 mg/dL (74-106) Calcium Level 9.8 mg/dL (8.7-10.4) Stool Occult Blood Positive (Negative) Stool Occult Blood Sample #3 (Negative) Total Bilirubin 3.7 mg/dL (0.2-1.0) Aspartate Amino Transferase (AST) 246 U/L (13-40) Alanine Aminotransferase (ALT) 331 U/L (7-40) Alkaline Phosphatase 683 U/L (46-116) Total Protein 7.0 g/dL (5.7-8.2) Albumin 4.2 g/dL (3.2-4.8) Test 09/14/24 22:35 09/14/24 17:20 09/14/24 13:56 Urine Color Yellow (Yellow) Urine Clarity Clear (Clear) Urine pH 5.5 (5.0-9.0) Urine Specific [place] 1.040 (1.001-1.035) Urine Protein Negative (Negative) Urine Ketones Negative (Negative) Urine Blood Negative /uL (Negative) Urine Nitrite Negative (Negative) Urine Bilirubin Negative (Negative) Urine Urobilinogen 3 mg/dL (Negative) Urine Leukocyte Esterase Negative /uL (Negative) Urine RBC <1 /hpf (0 - 3) Urine Microscopic WBC 1 /HPF (0-3) Urine Squamous Epithelial Cells None seen /hpf (<5) Urine Bacteria None seen /hpf (None Seen) Urine Glucose 4+ mg/dL (Normal) Troponin I High Sensitivity 10 ng/L (</=54) Lactic Acid Level 1.4 mmol/L (0.4-2.0) Lipase 36 U/L (12-53) Tumor Marker Alpha Fetoprotein <1.8 ng/mL (0.0-8.4) Carcinoembryonic Antigen 100.00 ng/mL (<=5.0) Hepatitis A IgM Antibody Negative Hepatitis B Surface Antigen Negative (Negative) Hepatitis B Core IgM Antibody Negative (Negative) Hepatitis C Antibody Negative (Negative) Other Laboratory Tests 09/17/24 06:46 Brief Hx & Hospital Course: Patient 73-year-old male with prior history of type 2 diabetes mellitus and CAD with ND requiring PTCA x 3 BERTO in August 2023, who presented to the ED with chief complaint of chest pain. He was previously living in [place], and refers intermittent episodes of chest pain and shortness of breath since April of 2024. He underwent a nuclear stress test in April of 2024, which was positive for a large area of inferior reversible ischemia, currently on ASA, Brilinta, statin, BB, and ACEi. However, due to insurance concerns, further invasive testing could not be performed at the time. He returned to [place] for further work up. When establishing care with a primary, laboratory results showed elevated total bilirubins and LFTs, which prompted a Liver ultrasound study showing numerous masses, patient was subsequently sent to ED for further evaluation. 12 Lead EKG revealed sinus rhythm with non specific ST-T wave changes. Initial labs show Hb 11.3, HCT 33.7, PLT 276, troponins negative, total bilirubin 3.7, AST 246, ALT 331, and ALP 683. CT Abdomen/pelvis showed ill-defined hypoenhancing mass in the body of the pancreas measuring up to 50 mm with multiple liver lesions. He was admitted for further workup. On evaluation, he stated that he first started noticing changes in his stools in April, and during this time his PCP also had to increase his metformin due to increasingly difficult to control diabetes. He stated he has lost weight, but that it was intentional to due to previous ND and diabetes. However, he stated that for last few months he'd been having progressively worsening abdominal pain. Described the pain as starting toward his back and came around to the front and has progressively increased in intensity. Additionally, he stated that his children have mentioned he at times has a yellow tint to him. He denied nausea, vomiting, changes in appetite, pale stools, changes in urine, shortness of breath, generalized pruritus, and other symptoms. Follow up tests showed AFP negative, CEA 100, CA 19-9 has been ordered. Patient was seen by cardiology, who stated that due to the findings of metastatic pancreatic cancer, he is not a candidate for invasive cardiac procedures. They recommended conservative management with ASA and his home medications. IR was consulted for a biopsy of one of the liver lesions for histopathological confirmation. This procedure was carried out today successfully. On evaluation today, patient stated that he felt well, was ambulating, tolerating diet, and having bowel movements. Labs today were within range, and vitals remained stable. He tolerated the procedure without any difficulty. He was monitored for a few hours postprocedure for any signs of bleeding. He was cleared and considered safe for discharge home. He has been given an appointment in the discharge clinic for follow up for his pathology report and guidance on the next steps. Everything was discussed with the patient and his family, who state they understand and agree with the proposed course. Physical Exam: General: Patient is oriented in person, place, and time. Follows commands. HEENT: Normocephalic, atraumatic, moist mucouse membrane Respiratory: Clear lungs bilaterally, vesicular murmurs present in almost all lung [place], no associated crackles or wheezes Cardiovascular: Normal rate, Normal S1 and S2 Abdomen: Nondistended, soft, no pain to palpation, no palpable masses Extremities: peripheral pulses present and strong, no apparent deformities Skin: No rashes or pruritus Neurological: intact cranial nerves with no focal neurologic deficits Case discussed with Dr. Alcazar. Goals of care discussed with the patient and his family, who state that they understand and agree. Consults/Reason for consult IR was consulted for biopsy of liver lesion Operations or Procedures Exam: CT CT AB PEL WITH IV CON ONLY History: abdominal pain COMPARISON: None Technique: Multidetector spiral CT of the abdomen and pelvis was performed from lung bases to pubic symphysis. Intravenous contrast was administered during this examination. Portal venous imaging was obtained. Axial, coronal and sagittal multiplanar reformats were performed by the technologist on a separate workstation. Radiation Dose : Abdomen/Pelvis: CTDIvol 19.19 mGy, DLP 999.82 mGy*cm. CONTRAST: Type of contrast: Omni 300 Contrast injected: 85 mL Findings: Lung Bases: No acute or significant lung base finding. Normal heart size. No pleural or pericardial effusion. Liver: Numerous hypoenhancing masses throughout the liver, largest measuring up to 32 mm. Gallbladder and biliary Tree: Gallbladder is surgically absent. Spleen: Unremarkable Pancreas: Ill-defined hypoenhancing mass in the body of the pancreas measuring up to 50 mm. Adrenal Glands: Unremarkable Kidneys: No hydronephrosis. Bladder: Unremarkable Bowel: The stomach is grossly normal in appearance. Small bowel and colon are normal in caliber and distribution. Normal appendix is visualized in the right lower quadrant without findings of appendicitis. Ascites: Absent Lymphadenopathy: No mesenteric, retroperitoneal or periportal lymphadenopathy. Abdominal wall and Mesentery: Small fat containing umbilical hernia. Vasculature: The visualized abdominal aorta is normal in size and caliber. There is calcified atherosclerotic plaque involving the aorta and its branches. Abdominal and pelvic vessels demonstrate normal enhancement. Pelvic Organs: Unremarkable Musculoskeletal: No aggressive focal bony lesions, acute fractures or dislocation. IMPRESSION: 1. Ill-defined hypoenhancing mass in the body of the pancreas measuring up to 50 mm. Numerous hypoenhancing masses throughout the liver. Findings are concerning for primary pancreatic malignancy with metastatic disease to the liver. Recommend further evaluation with MRI of the abdomen with contrast. CT- guided biopsy of the most accessible liver lesion could be performed for tissue diagnosis. CHEST RADIOGRAPH Indication: chest pain Technique: Single frontal view of the chest was obtained Comparison: None FINDINGS: Lines and Tubes: None Lungs: No focal consolidation. Pleura: No effusion. No pneumothorax. Cardiomediastinal contours: Unremarkable Bones: No acute osseous abnormality. IMPRESSION: No acute cardiopulmonary disease. US US GUIDANCE FOR NEEDLE PLACEME, HISTORY: LIVER MASS BX PROCEDURE: Informed consent was obtained. The patient was placed supine on the CT scanner, and limited US was performed of the liver. The skin over the area of interest was prepped with chlorhexidine which was allowed to dry and draped in the usual sterile fashion. Time out was performed. 1% local lidocaine was administered. With intermittent US guidance, Temno 17 gauge outer coaxial guiding needle was advanced into the right lower liver mass. Multiple biopsies were obtained using Temno 18 gauge inner core biopsy needle. The specimens were placed in formalin and sent to pathology for analysis. The needle was withdrawn , and the visceral tract embolized with gelfoam pledgets. 8 minutes of pressure was held for hemostasis. Post procedural images were obtained. No immediate complication was identified. FINDINGS: Right inferior lobe of liver mass seen on US correlates to CT scan. Intra-procedural images demonstrate biopsy needle within the margin of targeted lesion. Post procedural images do not demonstrate any significant hemorrhage. IMPRESSION: US guided right lower liver mass biopsy. Pathology results pending. Bed rest for [address] ABDOMEN WITHOUT CONTRAST HISTORY: LIVER MASS BX PROCEDURE: Informed consent was obtained. The patient was placed supine on the CT scanner, and limited US was performed of the liver. The skin over the area of interest was prepped with chlorhexidine which was allowed to dry and draped in the usual sterile fashion. Time out was performed. 1% local lidocaine was administered. With intermittent US guidance, Temno 17 gauge outer coaxial guiding needle was advanced into the right lower liver mass. Multiple biopsies were obtained using Temno 18 gauge inner core biopsy needle. The specimens were placed in formalin and sent to pathology for analysis. The needle was withdrawn , and the visceral tract embolized with gelfoam pledgets. 8 minutes of pressure was held for hemostasis. Post procedural images were obtained. No immediate complication was identified. FINDINGS: Right inferior lobe of liver mass seen on US correlates to CT scan. Intra-procedural images demonstrate biopsy needle within the margin of targeted lesion. Post procedural images do not demonstrate any significant hemorrhage. IMPRESSION: US /CT guided right lower liver mass biopsy. Pathology results pending. Condition at Discharge: Stable Final Diagnosis/Problems List Likely Pancreatic Cancer with liver mets History of CAD with ND s/p PTCA of the RCA x 3 BERTO Unstable angina, unable to exclude progressive CAD Anemia, possible due to chronic disease Type 2 Diabetes Mellitus Hypertension Dyslipidemia Discharge Disposition: Home Discharge Instruct/Medications Diet: Cardiac 2g Na,low cholest Activity: No Restrictions, As Tolerated Follow Up/Referral: Follow up in the discharge clinic in 1-2 weeks Medications: [place] PO Home medications Scheduled Aspirin (Aspir-Low), 81 MG PO DAILY, (Reported) Empagliflozin (Jardiance), 1 TAB PO DAILY, (Reported) Lisinopril (Lisinopril), 1 TAB PO DAILY, (Reported) Metformin Hydrochloride (Metformin Hcl), 500 MG PO ACHS, (Reported) Metoprolol Succinate (Metoprolol Succinate Er), 1 TAB PO DAILY, (Reported) Scheduled PRN Hydrocodone-Acetaminophen (Hydrocodone Bitartrate/AC 5-325 mg), 1 TAB PO Q8HP PRN Miscellaneous Medications Atorvastatin Calcium (Atorvastatin Calcium), (Reported) Discontinued Medications Ticagrelor Base (Brilinta), 1 TAB PO BID, (Reported) Discharge Statement: "Patient was advised to return to the ER or call 911 if any headaches, dizziness, shortness of breath, chest pain, abdominal pain, bleeding, fevers, or worsening of medical condition. Patient was counseled about treatment plan, medications, possible side effects, patientverbalized understanding. All questions were answered to the best of my ability. This discharge took greater then 30 minutes in planning, reviewing documentation, counseling the patient, and discussing with other team members." ASSESSMENT ASSESSMENT Assessment Likely pancreatic cancer with liver metastasis Date of Service: Sep 17, 2024 Billing Provider: SIMRAN ALCAZAR MD Common Visit Codes: 98515-KBA/OBS DISCH DAY >30min DANIELLE KNIGHT RESIDENT Sep 17, 2024 18:25 SIMRAN ALCAZAR MD Sep 20, 2024 14:19
== END 2024-09-17 17:46 | disposition home or self-care (01) | DRG 436 ==
LOC: ER 13:24 → OVERFLOW 17:13 → TELE-WESTW 22:53
PROVIDERS: ADMIT Student in an Organized Health Care Education/Training Program; ATTEND Student in an Organized Health Care Education/Training Program
PROC: 0FB13ZX Excision of Right Lobe Liver, Percutaneous Approach, Diagnostic (ICD-10-PCS; principal; 2024-09-17)
DX: C25.9 Malignant neoplasm of pancreas, unspecified (principal); C78.7 Secondary malignant neoplasm of liver and intrahepatic bile duct; I25.110 Atherosclerotic heart disease of native coronary artery with unstable angina pectoris; I25.2 Old myocardial infarction; K76.9 Liver disease, unspecified; E66.9 Obesity, unspecified; E11.9 Type 2 diabetes mellitus without complications; I10 Essential (primary) hypertension; M54.6 Pain in thoracic spine; E78.5 Hyperlipidemia, unspecified; Z79.84 Long term (current) use of oral hypoglycemic drugs; Z98.61 Coronary angioplasty status; Z79.899 Other long term (current) drug therapy; Z79.82 Long term (current) use of aspirin; Z68.28 Body mass index [BMI] 28.0-28.9, adult; D63.8 Anemia in other chronic diseases classified elsewhere
CPT/HCPCS: 10005; 36415; 71045; 74150; 74177; 76942; 77012; 80048; 80053; 80061; 80074; 81001; 82043; 82105; 82270; 82306; 82378; 83036; 83605; 83690; 84439; 84443; 84484; 85007; 85027; 85610; 85730; 86301; 93005; 93306; G0378; J2003

== ENCOUNTER → 2024-10-01 | Outpatient (CLI) | payer MEDICARE, OTHER ==
[~2024-10-01] MED LIST: ASPI-543 PO; ATOR40TA52; EMPA1TAB PO; HYDR-4902 PO; LISI-275 PO; METF-370 PO; METO25TA93 PO
[2024-10-01 13:21] LABS: Chloride 101 mmol/L (98-107); Sodium 140 mmol/L (136-145)
[2024-10-01 13:22] LABS: Anion Gap 11 (5-15); Calcium 9.4 mg/dL (8.7-10.4); Carbon Dioxide 28 mmol/L (20-31)
[2024-10-01 13:27] LABS: BUN/Creatinine Ratio 22.9 (10.0-20.0); Blood Urea Nitrogen 19 mg/dL (9-23)
[2024-10-01 13:32] LABS: Glucose 122 mg/dL (74-106); Potassium 5.3 mmol/L (3.5-5.1)
== END | disposition home or self-care (01) ==
LOC: LAB 23:52 → EDSTATUS 10-05 16:30
PROVIDERS: ATTEND Internal Medicine Gastroenterology
DX: Z01.812 Encounter for preprocedural laboratory examination (principal); C78.7 Secondary malignant neoplasm of liver and intrahepatic bile duct; K86.89 Other specified diseases of pancreas; E78.70 Disorder of bile acid and cholesterol metabolism, unspecified
CPT/HCPCS: 36415; 80048